=== PATIENT | male | born 1975 | race Caucasian/White ===

== ENCOUNTER 2019-06-15 05:08 | Emergency (ER) | payer BC ==
[2019-06-15] MEDS ORDERED: Azithromycin 250 MG Tab PO ONE (05:09)
--- NOTE | 2019-06-15 05:47 | EDM.PDOC ---
ED HPI GENERAL MEDICAL PROBLEM - General Chief Complaint: ENT Problem Stated Complaint: EAR INFECTION Time Seen by Provider: 06/15/19 05:30 Source of Information: Reports: Patient History Limitations: Reports: No Limitations - History of Present Illness INITIAL COMMENTS - FREE TEXT/NARRATIVE: 44 you male with c/o mild-moderate. bilateral ear pain,worse of the left. Started insidiously a few days ago. He endorses dizziness,a recent URI,but denies fever or chills. Also has mild drainage fro,m the left. bilateral ear Pain Score (Numeric/FACES): 3 Past Medical History HEENT History: Reports: Otitis Media Respiratory History: Reports: Other (See Below) Other Respiratory History: recent bronchitis. Social & Family History - Family History Family Medical History: Noncontributory - Tobacco Use Smoking Status *Q: Current Every Day Smoker Years of Tobacco use: 31 Packs/Tins Daily: 1 - Caffeine Use Caffeine Use: Reports: Coffee, Soda - Recreational Drug Use Recreational Drug Use: No ED ROS ENT - Review of Systems Review Of Systems: ROS reveals no pertinent complaints other than HPI. ED EXAM, ENT - Physical Exam Exam: See Below Exam Limited By: No Limitations General Appearance: Alert, WD/WN Ears: Normal External Exam, TM Bulging, TM Dullness, TM Erythema. No: Hearing Loss Nose: Normal Inspection Mouth/Throat: Normal Inspection Course - Vital Signs Last Recorded V/S: Last Vital Signs Temp 97.5 F 06/15/19 05:15 Pulse 53 L 06/15/19 05:15 Resp 18 06/15/19 05:15 BP 119/73 06/15/19 05:15 Pulse Ox 99 06/15/19 05:15 Departure - Departure Time of Disposition: 05:46 Disposition: Home, Self-Care 01 Condition: Good Clinical Impression: Otitis media - Discharge Information Instructions: Otitis Media, Adult Referrals: PCP,None [Primary Care Provider] - Forms: ED Department Discharge Additional Instructions: Take Medication as directed. Follow up with PCP. - Problem List & Annotations (1) Otitis media SNOMED Code(s): 40631467 Code(s): H66.90 - OTITIS MEDIA, UNSPECIFIED, UNSPECIFIED EAR Status: Acute Qualifiers: Otitis media type: suppurative Chronicity: acute Laterality: left Recurrence: recurrent Spontaneous tympanic membrane rupture: with spontaneous rupture Qualified Code(s): H66.015 - Acute suppurative otitis media with spontaneous rupture of ear drum, recurrent, left ear - Problem List Review Problem List Initiated/Reviewed/Updated: Yes - Assessment/Plan Plan: Yoanna
== END 2019-06-15 05:40 | disposition home or self-care (01) ==
LOC: FB.ED 05:08
DX: H66.93 Otitis media, unspecified, bilateral (principal); F17.210 Nicotine dependence, cigarettes, uncomplicated
CPT/HCPCS: 99282; A9270-GY